=== PATIENT | male | born 1960 | race Caucasian/White ===

== ENCOUNTER 2017-03-09 11:32 | Emergency (ER) | payer OTHER ==
[~2017-03-09] VITALS: Ht 172.7 cm; Wt 83.9 kg
--- NOTE | ~2017-03-09 | EKG ---
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 : 1960 Requested By: Madan Richard Order Number: [id number] MD: Saud Ruvalcaba Measurements Intervals [place] Rate: 71 P: 35 ND: 139 QRS: 32 QRSD: 92 T: 20 QT: 396 QTc: 431 Interpretive Statements Sinus rhythm Borderline T abnormalities, inferior leads Baseline wander in lead(s) III,aVL,aVF Compared to ECG 01/25/2017 04:21:51 T-wave abnormality now present Sinus bradycardia no longer present Electronically Signed On 03-09-2017 14:08:56 CDT by Saud Ruvalcaba [email or web address] <ELECTRONICALLY SIGNED> By: Saud Ruvalcaba MD 03/09/17 1408 [id number] Saud Ruvalcaba MD /EPI
[~2017-03-09 11:32] MED LIST: CENTRUM SILVER1 EAC2 PO; CLONAZEPAM 1 MG1 M1 PO; LEXAPRO20 MG PO; OMEPRAZOLE40 MG PO
[2017-03-09] MEDS ORDERED: LATUDA60 MG PO (12:03)
[2017-03-09 12:20] LABS: HEMATOCRIT 37.9 % (42.0-52.0); HEMOGLOBIN 12.7 gm/dL (14.0-18.0); MANUAL DIFF YES; MCH 30.7 pg (26.0-34.0); MCHC 33.6 g/dL (28.0-37.0); MCV 91.5 fL (80.0-100.0); PLATELET COUNT 248 thou/uL (150-400); RBC 4.14 mil/uL (4.50-6.00); RDW 14.8 % (10.5-14.5); WBC 11.3 thou/uL (4.0-11.0)
[2017-03-09 12:26] LABS: ANION GAP 10 mmol/L (7-16); BUN 16 mg/dL (7-18); CALCIUM 8.6 mg/dL (8.5-10.1); CHLORIDE 109 mmol/L (98-107); CO2 25 mmol/L (21-32); CREATININE 1.2 mg/dL (0.7-1.3); GLUCOSE 104 mg/dL (74-106); POTASSIUM 3.8 mmol/L (3.5-5.1); SODIUM 144 mmol/L (136-145)
[2017-03-09 12:39] LABS: NT-PRO BRAIN NAT PEPTIDE 790 pg/mL (<300); TROPONIN-I < 0.04 ng/mL (<0.04-0.07)
[2017-03-09 12:45] LABS: ABSOLUTE NEUTROPHILS 6.8 thou/uL (1.4-8.2); ANISOCYTOSIS SLIGHT; TOTAL CELL COUNT 100
[2017-03-09] MEDS ORDERED: ZPAK PO (12:54)
[2017-03-09] MEDS ORDERED: VENTOLIN HFA 1818 GM INH (12:56)
[2017-03-09 13:07] VITALS: BP 111/64
== END 2017-03-09 13:07 | disposition left against medical advice (07) ==
LOC: ER 11:32
PROVIDERS: Nurse Practitioner
DX: J18.8 Other pneumonia, unspecified organism (principal); F99 Mental disorder, not otherwise specified; F32.9 Major depressive disorder, single episode, unspecified; F41.9 Anxiety disorder, unspecified; Z88.8 Allergy status to other drugs, medicaments and biological substances; F17.210 Nicotine dependence, cigarettes, uncomplicated

== ENCOUNTER 2017-03-13 23:58 | Emergency (ER) | payer OTHER ==
[~2017-03-13] VITALS: Ht 172.7 cm; Wt 83.9 kg
[~2017-03-13 23:58] MED LIST changes: +LATUDA60 MG PO; +VENTOLIN HFA 1818 GM INH; +ZPAK PO
[2017-03-14] MEDS ORDERED: AZITHROMYCIN 2250 MG PO (00:12)
[2017-03-14] MEDS ORDERED: NAPROXEN250 MG PO (00:13)
[2017-03-14] MEDS ORDERED: ESCITALOPRAM OX20 MG PO (00:13)
[2017-03-14 00:43] LABS: ABG SAMPLE TYPE ARTERIAL; BE(vivo) -1.6 mmol/L (-2 to +3); HCO3 21.6 mmol/L (22.0-26.0); LACTATE 1.49 mmol/L (0.5-2.0); O2(CT) 19.2 mL/dL (15.0-23.0); PCO2 32.5 mmHg (35.0-45.0); PO2 60.6 mmHg (80.0-100.0); sO2 92.4 % (92.0-98.0); tCO2 22.6 mmol/L (24.0-30.0)
[2017-03-14 00:44] LABS: STICK SITE L.RADIAL
[2017-03-14] MEDS ORDERED: PROAIR HFA8.5 GM INH (00:58)
[2017-03-14] MEDS ORDERED: AMOXICILLIN 50500 M1 PO (00:58)
[2017-03-14 01:15] VITALS: BP 149/70
== END 2017-03-14 01:16 | disposition home or self-care (01) ==
LOC: ER 23:58
PROVIDERS: Emergency Medicine
DX: J06.9 Acute upper respiratory infection, unspecified (principal); H66.92 Otitis media, unspecified, left ear; Z86.59 Personal history of other mental and behavioral disorders; F32.9 Major depressive disorder, single episode, unspecified; F41.9 Anxiety disorder, unspecified; Z88.8 Allergy status to other drugs, medicaments and biological substances; F17.210 Nicotine dependence, cigarettes, uncomplicated